=== PATIENT | female | born 1990 | race Native Hawaiian/Other Pacific Islander ===

== ENCOUNTER 2021-09-01 14:31 | Outpatient (REF) | payer MEDICAID, SELFPAY | END 2021-09-01 14:32 | disposition home or self-care (01) | LOC: HO.LAB 14:31 | PROVIDERS: Visit Provider Internal Medicine | DX: Z20.822 Contact with and (suspected) exposure to COVID-19 (principal) | CPT/HCPCS: C9803; U0003; U0005 ==

== ENCOUNTER 2023-03-14 10:48 | Emergency (ER) | payer MEDICAID, SELFPAY ==
[2023-03-14 10:52] VITALS: BP 155/89; PULSE 85; RESP 14; TEMP 36.3; O2SAT 98; BMI 44.3
--- NOTE | 2023-03-14 13:01 | ED.DENTAL ---
HPI - Dental/Oral General Chief complaint: Dental/Oral Stated complaint: Dental pain Time Seen by Provider: 03/14/23 11:58 Source: patient and RN notes reviewed Mode of arrival: ambulatory Limitations: no limitations History of Present Illness HPI Narrative: This is a 32-year-old female, with no known past medical history, presenting to the emergency department with complaints of left upper dental pain times 1 week. Patient reports that she has a known dental decay tooth which she has had prescribed antibiotics for in the past. She has an appointment with her dentist in April. Denies any fevers or chills. She has been taking ibuprofen for her pain which has provided her with minimal relief. No other complaints or concerns at this time. MD Complaint: tooth pain Location: Tooth # (12) Onset (ago): day(s) Duration: constant Severity: moderate Relieving factors: nothing Exacerbating factors: nothing Context: history of dental caries and poor dental care Treatment prior to arrival: none Related Data Previous Rx's Medication Instructions Recorded acetaminophen 325 mg tablet 650 mg PO Q6H PRN pain #30 tabs 03/14/23 (Tylenol) clindamycin HCl 300 mg capsule 300 mg PO TID 7 days #21 caps 03/14/23 ibuprofen 600 mg tablet 600 mg PO Q6H PRN pain #30 tabs 03/14/23 Allergies Allergy/AdvReac Type Severity Reaction Status Date / Time Penicillins [PENICILLINS] Allergy Unknown JITTERY Unverified 05/29/20 16:42 Review of Systems Review of Systems: Constitutional: No Weight loss, No Fever, No Chills ENT/Mouth: No Ear Pain, No Nasal Congestion, No Sinus Pain, No Hoarseness, No sore throat, No Rhinorrhea, No Swallowing Difficulty Cardiovascular: No Chest Pain, No SOB Respiratory: No Cough, No Sputum, No Wheezing Gastrointestinal: No Nausea, No Vomiting, No Diarrhea, No Constipation, No Abdominal pain Genitourinary: No Dysuria, No Urinary Frequency, No Hematuria, No Urinary Incontinence/retention, No Urgency, No Flank Pain Musculoskeletal: No joint pain, No Myalgias, No Joint Swelling Skin: No Skin Lesions, No rash Neuro: No Weakness, No Numbness, No Paresthesias Yes all other systems are reviewed and are negative Constitutional: Constitutional: Reports as per [facility] Social History Social History Advance Directives: No Advance Directives Information Provided: No Physical Exam Vital Signs: Vital Signs: Last Vital Signs Temp 97.4 F 03/14/23 10:52 Pulse 85 03/14/23 10:52 Resp 14 03/14/23 10:52 BP 155/89 H 03/14/23 10:52 Pulse Ox 98 03/14/23 10:52 O2 Del Method Room Air 03/14/23 10:52 BMI result Body Mass Index 44.3 Const: General: cooperative, comfortable and no acute distress Orientation/consciousness: patient oriented x3 Limitations: no limitations HEENT: Other: Multiple teeth missing, tooth 12 with obvious dental decay, no gingival abscess, induration Head: Yes normal to inspection, Yes normocephalic and Yes atraumatic Ears: hearing grossly normal bilaterally General nose exam: Normal external nose present Face and sinus: Yes normal facial exam Mouth: Normal oral and palatal mucosa present, oropharynx normal and moist mucous membranes Teeth and gingiva: poor dentition and other Throat: Yes posterior oropharynx normal Eyes: General: appearance normal, both eyes and all related structures Eyelids: Yes eyelids normal Conjunctivae: conjunctivae normal Sclerae: sclerae normal Pupils: Equal, round and reactive pupils present EOM: EOMs intact bilaterally Neck: Neck: Yes normal visual inspection, Yes full ROM and Yes no lymphadenopathy Lymphatic: no lymphadenopathy noted Chest: Chest palpation & inspection: normal inspection of the chest Resp: Effort & Inspection: normal respiratory effort and able to speak in complete sentences Auscultation: clear to auscultation bilaterally, no crackles, no rales, no rhonchi and no wheezes Cardio: Rate: regular rate Rhythm: regular rhythm Heart sounds: S1 normal heart sound present and S2 normal heart sound present GI: Inspection: Yes normal to inspection Skin: General skin exam: no rashes or lesions noted Trauma: no lacerations or abrasions Wounds: no wounds Neuro: General: patient oriented x3 and moves all extremities Cranial nerves: Yes Equal, round and reactive pupils present Extrem: General: Yes normal to inspection Right upper extremity: normal to inspection Left upper extremity: normal to inspection Right lower extremity: normal to inspection Left lower extremity: normal to inspection Medical Decision Making Medical Decision Making MDM Narrative: This is a 32-year-old female presenting to the emergency department for evaluation of left upper dental pain x1 week. On examination obvious dental decay noted to tooth 12., mild gingival erythema, no fluctuance or induration. Patient mildly hypertensive at 155/89, likely due to pain. Will discharge patient on clindamycin as patient has reported severe penicillin allergy. Advised patient to follow-up with her dentist has her symptoms will not resolve until she is able to. Advised to return with any new or worsening symptoms. Patient understands and agrees with plan. Patient stable for discharge. Differential Diagnosis Differential Diagnoses: The differential diagnosis associated with the presentation includes Dental decay, dental fracture, dental abscess, TMJ Admission/Observation Consideration of admission/observation: Escalation of care including admission/observation considered Lab Data MDM Lab Attestation statement: I reviewed the patient's lab results. Radiology Impression Discussion of test interpretation with radiology: I have reviewed the radiologist's reading. External Record Review External record reviewed: Inpatient record, Office record, Outpatient record, Prior outpatient labs, Prior outpatient radiology, Primary care record and Outside ED record Discharge Plan Discharge Clinical Impression: Dental abscess, Toothache Patient Disposition: Home, Self-Care Instructions: Toothache (ED) Additional Instructions: Your tooth is decaying which is causing have dental pain. Please take prescribed antibiotic as directed. Finish the entire course even if your feeling better. You need to follow-up with your dentist as your symptoms will not resolve until your seen by them. Take ibuprofen and Tylenol as directed as needed for your pain. If any new or worsening symptoms occur please return for re-evaluation. Prescriptions: New clindamycin HCl 300 mg capsule 300 mg PO TID 7 Days Qty: 21 0RF ibuprofen 600 mg tablet 600 mg PO Q6H PRN (Reason: pain) Qty: 30 0RF acetaminophen [Tylenol] 325 mg tablet 650 mg PO Q6H PRN (Reason: pain) Qty: 30 0RF
== END 2023-03-14 13:16 | disposition home or self-care (01) ==
PROVIDERS: Emergency Provider Emergency Medicine Emergency Medical Services
DX: K04.7 Periapical abscess without sinus (principal); K08.89 Other specified disorders of teeth and supporting structures
CPT/HCPCS: 99282; 99283

== ENCOUNTER 2024-04-02 11:39 | Emergency (ER) | payer MEDICAID, SELFPAY ==
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
[2024-04-02 11:52] VITALS: BP 138/76; BP 148/102; PULSE 74; PULSE 77; RESP 18; O2SAT 100; O2SAT 99; BMI 35.9
[2024-04-02 12:21] LABS: Amphetamine Screen Urine Not Detected (Not Detect); Barbiturates, Urine Not Detected (Not Detect); Benzodiazepines Screen Urine Not Detected (Not Detect); Buprenorphine Scr Not Detected (Not Detect); Cannabinoid Screen Urine Not Detected (Not Detect); Cocaine Screen Urine POSITIVE (Not Detect); Fentanyl, urine POSITIVE (Not Detect); Methadone Screen, Urine Positive (Not Detect); Opiate Screen Urine POSITIVE (Not Detect); Oxycodone Screen Urine Not Detected (Not Detect); Phencyclidine Screen Urine Not Detected (Not Detect)
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
[2024-04-02 12:34] LABS: UPreg QC Valid YES; Urine Pregnancy NEGATIVE (NEGATIVE)
[2024-04-02 14:00] VITALS: BP 154/114; PULSE 60; RESP 19; TEMP 36.4; O2SAT 97
[2024-04-02 15:03] VITALS: BP 126/78; PULSE 51; RESP 11; O2SAT 92
[2024-04-02 16:00] VITALS: BP 123/81; PULSE 55; RESP 12; TEMP 36.2; O2SAT 97
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
[2024-04-02 17:18] VITALS: BP 123/81; PULSE 55; RESP 12; TEMP 36.2; O2SAT 97
== END 2024-04-02 17:19 | disposition home or self-care (01) ==
PROVIDERS: Registered Nurse Emergency; Emergency Provider Emergency Medicine
DX: S19.9XXA Unspecified injury of neck, initial encounter (principal); R51.9 Headache, unspecified; M54.2 Cervicalgia; V47.5XXA Car driver injured in collision with fixed or stationary object in traffic accident, initial encounter; Y93.89 Activity, other specified; Y92.488 Other paved roadways as the place of occurrence of the external cause; Y99.8 Other external cause status; Z79.899 Other long term (current) drug therapy
CPT/HCPCS: 70450; 72125; 80307; 81025; 99283; 99284

== ENCOUNTER 2024-12-28 00:31 | Emergency (ER) | payer MEDICAID, SELFPAY ==
--- NOTE | ~2024-12-28 | XR_ITS ---
CLINICAL HISTORY: sob 1 view chest x-ray Comparison: None Findings: The lungs are clear. Normal size heart. Pulmonary vascular prominence. No acute fracture. IMPRESSION: 1. Pulmonary vascular prominence. This document has been electronically signed by: Angeles Galo MD on 12/28/2024 05:55:25
[2024-12-28 00:33] VITALS: BP 144/76; PULSE 101; RESP 18; TEMP 37.2; O2SAT 97; BMI 34.0
[2024-12-28 03:10] VITALS: O2SAT 98
--- NOTE | 2024-12-28 03:12 | PC.NURSE ---
sars and strep collected and sent. pt awaiting provider.
[2024-12-28 03:18] LABS: IDNOW Serial# 6674DD1D; Strep A Nucleic Acid Negative (Negative)
[2024-12-28 03:56] LABS: Influenza A PCR NEGATIVE (Negative); Influenza B PCR NEGATIVE (Negative); Resp Syncy Virus RNA Qual PCR NEGATIVE (Negative); SARS COV2 PCR INHOUSE NEGATIVE (Negative)
--- NOTE | 2024-12-28 04:08 | PC.NURSE ---
Pt resting awaiting to be seen
[2024-12-28 05:13] VITALS: BP 124/67; PULSE 79; RESP 16; TEMP 36.4; O2SAT 96
--- NOTE | 2024-12-28 05:14 | PC.NURSE ---
vitals taken, x-ray ordered, pt awaiting to be seen.
--- NOTE | 2024-12-28 06:03 | ED.GENADULT ---
HPI - General Adult General Chief complaint: Upper Respiratory Symptoms Stated complaint: sore throat, vomiting Time Seen by Provider: 12/28/24 05:15 Source: patient Mode of arrival: ambulatory Limitations: no limitations History of Present Illness ED Provider: Dr. Nataliya Ortiz HPI narrative: Patient comes to the emergency room complaining of sore throat and subjective fever for couple of days. Patient denies chest pain or shortness of breath. Related Data Previous Rx's ?Medication ?Instructions ?Recorded acetaminophen 325 mg tablet 650 mg (2 x 325 mg) PO Q6H PRN 03/14/23 (Tylenol) pain #30 tabs clindamycin HCl 300 mg capsule 300 mg PO TID 7 days #21 caps 03/14/23 ibuprofen 600 mg tablet 600 mg PO Q6H PRN pain #30 tabs 03/14/23 azithromycin 250 mg tablet 250 mg PO DAILY 4 days #4 tabs 12/28/24 Allergies Allergy/AdvReac Type Severity Reaction Status Date / Time Penicillins [PENICILLINS] Allergy Unknown JITTERY Verified 12/28/24 00:34 Review of Systems Review of Systems: Constitutional : No Weight loss, No Fever, No Chills, No Night Sweats, No Fatigue, No Malaise ENT/Mouth : No Hearing loss, No Ear Pain, No Nasal Congestion, No Sinus Pain, No Hoarseness, patient complaining of sore throat, No Rhinorrhea, No Swallowing Difficulty Eyes: No Eye Pain, No Swelling, No Redness, No Foreign Body, No Discharge, No Vision Changes Cardiovascular : No Chest Pain, No SOB, No Dyspnea on Exertion, No Orthopnea, No Edema, No Palpitations Respiratory : No Cough, No Sputum, No Wheezing, No Smoke Exposure, No Dyspnea Gastrointestinal : No Nausea, No Vomiting, No Diarrhea, No Constipation, No abdominal Pain, No Hematochezia, No Melena Genitourinary : no irregular bleeding, No Dysuria, No Urinary Frequency, No Hematuria, No Urinary Incontinence, No Urgency, No Flank Pain, No Urinary Flow Changes, No Hesitancy Musculoskeletal : No joint pain, No Myalgias, No Joint Swelling Skin : No Skin Lesions, No rash Neuro : No Weakness, No Numbness, No Paresthesias, No Loss of Consciousness, No Dizziness, No Headache Psych : No Anxiety/Panic, No Depression, No SI/HI/AH/VH, No Social Issues, Heme/Lymph: No Bruising, No Bleeding,No Lymphadenopathy Endocrine : No Polyuria, No Polydipsia, No Temperature Intolerance [facility] Past Medical History Medical History (Updated 12/28/24 @ 06:11 by Nataliya Ortiz MD) Polysubstance abuse Social History Social History Smoked in Last 30 Days: No Use of substances other than those prescribed or required for medical reasons: No Advance Directives: No Do you have a plan to hurt others: No Plan Physical Exam ED Vital Signs: Vital Signs - 24 hr 12/28/24 00:33 12/28/24 03:10 12/28/24 05:13 Temperature 98.9 F 97.5 F Pulse Rate 101 H 79 Respiratory Rate 18 16 Blood Pressure 144/76 H 124/67 Pulse Oximetry 97 98 96 Oxygen Delivery Method Room Air Room Air Room Air BMI result Body Mass Index 34.0 Const Other: Appearance: Alert. Oriented X3. No acute distress. Eyes: Pupils equal, round and reactive to light. ENT: Erythematous oropharynx with white exudates Neck: Normal inspection. Neck supple. No lymph nodes noted. No crepitus CVS: Normal heart rate and rhythm. Pulses normal. Normal S1 and S2 Respiratory: No respiratory distress. Patient had bilateral rales, no crackles or wheeze Abdomen: Soft and nontender. No rigidity. No distention. Skin: Skin warm and dry. Normal skin color. Normal skin turgor. Extremities: No lower extremity edema. No Lacerations. No Rash Neuro: Oriented X 3. No motor deficit. No sensory deficit. Moving all extremities. No slurred speech. CN 2 through 12 grossly intact Psych: calm, cooperative, normal affect Medical Decision Making Medical Decision Making MDM Narrative: Patient's serology test is negative for influenza RSV COVID and strep However, on physical exam patient has very erythematous oropharynx with exudates. I discussed the patient that we will go ahead and treat with antibiotics. Patient is allergic to penicillins. States that It makes her feel jittery. My interpretation of x-ray: Vascular congestion versus infiltrates in the right lower lobe Also, patient's chest x-ray shows pulmonary vascular prominence. Patient was given the 1st dose of azithromycin here in the emergency room and Decadron Differential Diagnosis Differential Diagnoses: The differential diagnosis associated with the presentation includes (Strep pharyngitis, viral pharyngitis, COVID, viral URI) Lab Data [facility] Lab Attestation statement: I reviewed the patient's lab results. Labs: Lab Results 12/28/24 Range/Units 02:55 Influenza Type A (PCR) NEGATIVE (Negative) Influenza Type B (PCR) NEGATIVE (Negative) RSV RNA Qual (PCR) NEGATIVE (Negative) SARS-CoV-2 RNA (RT-PCR) NEGATIVE (Negative) S. pyogenes GrpA CHUY Negative (Negative) Independent Interpretation I performed an independent interpretation of an: Plain X-Ray Radiology Impression Discussion of test interpretation with radiology: I have reviewed the radiologist's reading. Radiologist Impression: The lungs are clear. Normal size heart. Pulmonary vascular prominence. No acute fracture. IMPRESSION: 1. Pulmonary vascular prominence. Discharge Plan Discharge Clinical Impression: Pharyngitis Patient Disposition: Home, Self-Care Instructions: Pharyngitis (ED) Additional Instructions: Please follow-up with your primary care physician tomorrow. If you have any worsening or new symptoms, please return to the emergency room or call 911 Prescriptions: New azithromycin 250 mg tablet 250 mg PO DAILY 4 Days Qty: 4 0RF Rx Instructions: start on day 2 of therapy No Action clindamycin HCl 300 mg capsule 300 mg PO TID 7 Days Qty: 21 0RF ibuprofen 600 mg tablet 600 mg PO Q6H PRN (Reason: pain) Qty: 30 0RF acetaminophen [Tylenol] 325 mg tablet 650 mg PO Q6H PRN (Reason: pain) Qty: 30 0RF Print Language: Icelandic
[2024-12-28] MEDS: Azithromycin 500 MG TABLET PO (06:18)
[2024-12-28] MEDS: dexAMETHasone 4 MG TABLET PO (06:18)
--- NOTE | 2024-12-28 06:19 | PC.NURSE ---
reviewed discharge instructions with pt pt verbalized understanding, medicated per mar, pt ambulated with a steady gait.
[2024-12-28 06:20] VITALS: BP 124/67; PULSE 79; RESP 16; TEMP 36.4; O2SAT 96
== END 2024-12-28 06:20 | disposition home or self-care (01) ==
PROVIDERS: Emergency Provider Emergency Medicine
DX: J02.9 Acute pharyngitis, unspecified (principal); R11.2 Nausea with vomiting, unspecified; R50.9 Fever, unspecified; R06.02 Shortness of breath; Z03.818 Encounter for observation for suspected exposure to other biological agents ruled out
CPT/HCPCS: 0241U; 71045; 87651; 99283; 99284; J8540

== ENCOUNTER → 2024-12-28 05:20 | Outpatient (BNV) | payer MEDICAID, SELFPAY | PROVIDERS: Emergency Provider Emergency Medicine; Visit Provider Radiology Diagnostic Radiology | DX: I28.8 Other diseases of pulmonary vessels (principal) | CPT/HCPCS: 71045 ==

== ENCOUNTER 2025-02-20 08:25 | Emergency (ER) | payer MEDICAID, SELFPAY ==
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
[2025-02-20 08:35] VITALS: BP 138/79; PULSE 79; RESP 14; TEMP 36.6; O2SAT 96; BMI 32.3
--- OUTSIDE RECORDS SUMMARY | 2025-02-20 09:02 | XMS_ITS | Clinical Summary ---
Author Organization [employer] Address [address] [place] [address] Care Team Providers Care Photo Mask Pattern Generator Name Role Phone Unavailable Primary Care Provider Unavailabl e Allergies Active Allergy Reactions Criticality Noted Date Comments Penicillins Rash High 01/19/2024 Per [facility] note Rx is severe Medications nicotine (Nicoderm CQ) 14 MG/24HR patch Place 1 patch on the skin 1 (one) time each day at the same time. 42 patch 01/19/2024 Active nicotine (Nicoderm CQ) 7 MG/24HR patch Place 1 patch on the skin 1 (one) time each day at the same time. 14 patch 01/19/2024 Active nicotine polacrilex (Commit) 2 MG lozenge Dissolve 1 lozenge (2 mg) in the mouth if needed for smoking cessation. 100 lozenge 01/19/2024 Active acetaminophen (Tylenol) 500 MG tablet Take 2 tablets (1,000 mg) by mouth every 6 (six) hours if needed for moderate pain or fever for up to 25 doses. 30 tablet 01/19/2024 Active ibuprofen 400 MG tablet Take 1 tablet (400 mg) by mouth every 6 (six) hours if needed for moderate pain or fever for up to 30 doses. 30 tablet 01/19/2024 Active Active Problems Problem Noted Date Diagnosed Date Tobacco dependence 01/19/2024 Opioid dependence, uncomplicated 01/19/2024 Encounters Date Type Department Care Team Description 12/28/2024 Orders Only [facility] External Provider, [facility] 11/23/2024 Population Health Risk Score [facility] ([facility]) Department [address] [phone] Provider, Population Health Generic from Last 3 Months Immunizations Immunization Administration Dates Next Due Pfizer Covid-19 Vaccine 12+ 10/29/2022, Social History Tobacco Use Types Packs/Day Years Used Date Smoking Tobacco: Every Day Cigarettes Smokeless Tobacco: Never Tobacco Cessation:Ready to Q uit: Not Asked; Counseling Given: Not Answered Comments:6 cigarettes a day Comments Unknown Sex and Gender Information Value Date Recorded Sex Assigned at Female 07/12/2022 10:15 AM EDT Legal Sex Female 10:15 AM EDT Gender Identity Female 07/12/2022 10:15 AM EDT Sexual Orientation Straight 07/12/2022 10 :15 AM EDT Last Filed Vital Signs Vital Sign Reading Time Taken Comments Blood Pressure 123/83 01/19/2024 2:50 PM EDT Pulse 62 01/19/2024 2:50 PM EDT Temperature 36.8 ??C (98.2 ??F) 01/19/2024 2:50 PM ED T Respiratory Rate 17 01/19/2024 2:50 PM EDT Oxygen Saturation 98% 01/19/2024 2:50 PM EDT Inhaled Oxygen Concentration - - Weight 116 kg (255 lb 3.2 oz) 01/19/2024 2:50 PM EDT Height - - Body Mass Index - - Plan of Treatment Health Maintenance Due Date Last Done Comments Dental Oral Exam 1988 Dental Prophylaxis 1988 Dental X-Ray: Full Mouth 1988 Depression Screening 1988 HIV Screening 1988 SDOH Screening 1988 Disability Screening 1988 Alcohol/Substance Use Screening 2000 Family Planning (PISQ) 2003 Hepatitis C Screening 2006 DTaP/Tdap/Td Vaccines (1 - Tdap) 2007 Hepatitis B Vaccines (1 of 3 - 19+ 3-dose series) 2007 Pneumococcal Vaccine: Pediatrics (0 to 5 Years) and At-Risk Patients (6 to 49) Years) (1 of 2 - PCV) 2007 Pap Smear 2009 Cervical Cancer Screening 2018 HPV/Cotest 2018 Dental X-Ray: Bitewings 05/27/2018 05/26/2017 COVID-19 Vaccine (4 - 2023-2 5 season) 2024 02/22/2023, 10/29/2022, 09/09/2022 Tobacco Screening 01/18/2025 01/19/2024 Influenza Vaccine (Season Ended) 2025 Zoster Vaccines (1 of 2) 2038 RSV Patients and Patients Aged 60 years or older (1 - 1-dose 75+ series) 2063 HIB Vaccines Aged Out No longer eligi ble based on patient's age to complete this topic HPV Vaccines Aged Out No longer eligi ble based on patient's age to complete this topic Hepatitis A Vaccines Aged Out No long er eligible based on patient's age to complete this topic IPV Vaccines Aged Out No longer eligi ble based on patient's age to complete this topic Meningococcal B Vaccine Aged Out No l onger eligible based on patient's age to complete this topic Meningococcal Vaccine Aged Out No marcia pineda eligible based on patient's age to complete this topic RSV under 20 months Aged Out No longe r eligible based on patient's age to complete this topic Rotavirus Vaccines Aged Out No longer eligible based on patient's age to complete this topic Procedures Procedure Name Priority Date/Time Associated Diagnosis Comments XR CHEST 1 VIEW Routine 12/28/2024 5:55 AM EDT SARS COV2/INFLUENZA A/B AND RSV RNA QL NAAT Routine 12/28/2024 2:55 AM EDT STREP A NUCLEIC ACID Routine 12/28/2024 2:55 AM EDT BITEWING - SINGLE RADIOGRAPHIC IMAGE Routine 05/26/2017 12:00 AM EDT from Last 3 Months or Most Recently Relevant to Health Maintenance Results * XR Chest 1 View (12/28/2024 5:55 AM EDT) Anatomical Region Laterality Modality Chest Radiographic Rosalina ging 12/28/2024 5:55 AM EDT Narrative 12/28/2024 5:56 AM EDT ? [facility] ?[address] ?[place] [address] ?XRay Report ? Signed ? Patient: Alberto,Nena ?MR#: [id number] ? : 1990 ?Acct:[id number] ? Age/Sex: 34 / F ?ADM Date: 04/18/25 ? Loc: HO.ED ? Attending Dr: ? Ordering Physician: Nataliya Ortiz MD ?? Date of Service: 12/28/24 ?? Procedure(s): XR chest 1V ?? Accession Number(s): [id number] ? cc: [facility]; Nataliya Ortiz MD ? CLINICAL HISTORY: sob ? 1 view chest x-ray ? Comparison: None ? Findings: ?? The lungs are clear. ?? Normal size heart. Pulmonary vascular prominence. ?? No acute fracture. ? IMPRESSION: ?? 1. Pulmonary vascular prominence. ? This document has been electronically signed by: Angeles Galo MD on ?? 12/28/2024 05:55:25 ? Dictated By: ?Anglees Galo MD ? Signed By: ?<Electronically signed by Angeles Galo MD in OV> ?12/28/24 0556 ? DD/ 4 ? TD/TT: 12/28/24554 ? E Commerce Analyst: ? Procedure Note Samia Burnham - 12/28/2024 [place] [address] XRay Report Signed Patient: Jean Claude Dominguez#: [id number] : 1990Acct:[id number] Age/Sex: 34 / FADM Date: 12/28/24 Loc: HO.ED Attending Dr: Ordering Physician: Nataliya Ortiz MD Date of Service: 12/28/24 Procedure(s): XR chest 1V Accession Number(s): [id number] cc: [facility]; Nataliya Ortiz MD CLINICAL HISTORY: sob 1 view chest x-ray Comparison: None Findings: The lungs are clear. Normal size heart. Pulmonary vascular prominence. No acute fracture. IMPRESSION: 1. Pulmonary vascular prominence. This document has been electronically signed by: Angeles Galo MD on 12/28/2024 05:55:25 Dictated By: Angeles Galo MD Signed By: <Electronically signed by Angeles Galo MD in OV> 12/28/24 0556 DD/ TD/TT: 12/28/24554 E Commerce Analyst: [facility] External Provider IMG XR PROCEDURES Edited Result - Final * Strep A Nucleic Acid (12/28/2024 2:55 AM EDT) IDNOW SERIAL# [id number] [facility] Strep A Nucleic Acid Negative Negative [facility] Comment:All test results mus t be correlated with clinical findings.This test has not been evaluated for monitoring treatment ofinfection.Additional follow-up testing using the culture method isrequired if the result is negative and clinical symptomspersist, or in the event of an acute rheumatic feveroutbreak. 12/28/2024 2:55 AM EDT 12/28/2024 2:58 AM EDT us Generic External Data Provider LAB MICROBIOLOGY - GENERAL ORDERABLES Final Result [facility] [address] [place] [phone] * SARS-CoV-2 RNA, Influenza A/B, and RSV RNA, Ql NAAT (12/28/2024 2:55 AM EDT) Influenza A PCR NEGATIVE Negative [facility] Influenza B PCR NEGATIVE Negative [facility] Resp Syncy Virus RNA Qual PCR NEGATIVE Negative [facility] SARS COV2 PCR NEGATIVE Negative [facility] Comment:All test results mus t be correlated with clinical findings.Negative results do not preclude SARS-CoV2, influenza Avirus, influenza B virus and/or RSV infectionand should not be used as the sole basis for treatment orother patient management decisions. Negative results must becombined with clinical observations, patient history, andepidemiological information.This test has not been evaluated for monitoring treatment ofinfection.This test has been authorized by the FDA under an EmergencyUse Authorization (EUA) for use by authorized laboratories.Testing performed on the [employer] GeneXpert utilizingreal-time RT-PCR.All SARS CoV2 and positive influenza A/B results arereported to [facility]. 12/28/2024 2:55 AM EDT 12/28/2024 2:58 AM EDT us Generic External Data Provider LAB MICROBIOLOGY - GENERAL ORDERABLES Final Result [facility] [address] [place] [address] [phone] from Last 3 Months Insurance [facility] C[facility] DENT[employer]-[facility] MEDICAID STAND ADULT
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
--- NOTE | 2025-02-20 10:26 | PC.NURSE ---
patient wound care completed on lac on right side of face.
--- NOTE | 2025-02-20 10:29 | PC.NURSE ---
patient changed for scans. drug paraphemalia fell out of patient clothes, ED security notified, at bedside for patient change agent. substances and paraphernalia confiscated by security. patient changed into hospital attire, belongings on [facility] shelf 4. patient tearful at this time.
[2025-02-20] MEDS: Diphth,Pertus(ACell),Tet Adult 0.5 ML SYRINGE IM (10:32)
[2025-02-20] MEDS: Bacitracin Oint 0.9 GM PACKET 1 APPL TOPICAL (11:31)
[2025-02-20] MEDS: Lidocaine HCl 1 % MPF 5 ML VIAL INFILTRATI (11:31)
[2025-02-20 13:43] VITALS: BP 135/80; PULSE 63; RESP 18; TEMP 36.6; O2SAT 99
== END 2025-02-20 13:44 | disposition home or self-care (01) ==
PROVIDERS: Emergency Provider Emergency Medicine Emergency Medical Services
DX: S01.411A Laceration without foreign body of right cheek and temporomandibular area, initial encounter (principal); V00.842A Pedestrian on standing electric scooter colliding with stationary object, initial encounter; M25.461 Effusion, right knee; F19.10 Other psychoactive substance abuse, uncomplicated; Z23 Encounter for immunization; Y93.89 Activity, other specified; Y92.9 Unspecified place or not applicable; Y99.9 Unspecified external cause status
CPT/HCPCS: 12011; 70450; 70486; 72125; 73564; 90471; 90715; 99282; 99284; J2003

== ENCOUNTER → 2025-02-20 09:53 | Outpatient (BNV) | payer MEDICAID, SELFPAY | PROVIDERS: Emergency Provider Emergency Medicine Emergency Medical Services; Visit Provider Radiology Diagnostic Radiology | DX: M54.2 Cervicalgia (principal); J34.2 Deviated nasal septum; J34.89 Other specified disorders of nose and nasal sinuses; M25.561 Pain in right knee; W19.XXXA Unspecified fall, initial encounter | CPT/HCPCS: 70450; 70486; 72125; 73564 ==